=== PATIENT | female | born 1965 | race African-American/Black ===

== ENCOUNTER 2019-07-15 17:28 | Emergency (ER) | payer BC, MEDICAID ==
[~2019-07-15] VITALS: Ht 157.5 cm; Wt 54.4 kg
--- NOTE | 2019-07-15 17:30 | NUR ---
Patient BIBA ALS accompanied by Eug[facility] [address], transferred to bed 2. RN evaluating patient at bedside.
[2019-07-15 17:44] VITALS: BP 148/83
--- NOTE | 2019-07-15 18:17 | NUR ---
54 Y/O F BIBA FOR ANXIETY, POSS ALCOHOL WITHDRAWL. PT STATES MOTHER CALLED AMBULANCE FOR HER BECAUSE HER LEGS ARE WEAK, SHAKING. ARMS ARE SHAKING AND SHE HAS LOWER ABDOMINAL PAIN. PT DENIES ALCOHOL X 2 DAYS. PT STATES SHE IS OFF OF HER MEDICATION FOR BIPOLAR, NO SEROQUEL X 2 WEEKS. SEIZURE PRECAUTIONS IN PLACE, BED LOWERED, SIDE RAIL X [address]. ALLERGIES: AMOXICILLIN, ARYTHROMYCIN ACCUCHECK:134 PMH: BIPOLAR
--- NOTE | 2019-07-15 19:12 | NUR ---
REPORT RECEIVED FROM HIREN GIRON.
--- NOTE | 2019-07-15 19:12 | NUR ---
GAVE REPORT TO HIREN MORILLO FOR CHANGE OF SHIFT.
[2019-07-15] MEDS ORDERED: NACL 0.9% 1,000 ML IV ONE (19:15)
[2019-07-15] MEDS ORDERED: LORazepam 2 MG/ML VIAL IVP ONE (19:15)
--- NOTE | 2019-07-15 19:27 | NUR ---
PULLED 2MG/ 1ML OF ATIVAN; WASTED WITH HIREN DUNCAN. ADMINISTERED 1MG/0.5MG.
--- NOTE | 2019-07-15 19:28 | NUR ---
COLLECTED FLU SWAB AND SENT TO LAB.
[2019-07-15 20:20] LABS: BASOPHILS # (AUTO) 0.1 K/uL (0.00-0.22); EOSINOPHILS % (AUTO) 0.1 % (0.0-4.0); HEMATOCRIT 31.4 % (36-48); HEMOGLOBIN 9.9 g/dL (12.0-16.0); LYMPHOCYTES % (AUTO) 16.1 % (20.5-51.1); MEAN CORPUSCULAR HEMOGLOBIN 27 pg (27-31); MEAN CORPUSCULAR HGB CONC 32 g/dL (33-37); MEAN CORPUSCULAR VOLUME 85.6 fL (80-94); MONOCYTES # (AUTO) 0.9 K/uL (0.8-1.0); MONOCYTES % (AUTO) 15.3 % (1.7-9.3); NEUTROPHILS # (AUTO) 4.1 K/uL (1.8-7.7); NEUTROPHILS % (AUTO) 67.5 % (42.2-75.2); PLATELET COUNT (AUTO) 249 K/uL (140-450); RED BLOOD CELL COUNT(AUTO) 3.66 MIL/uL (4.20-5.40); RED CELL DISTRIBUTION WIDTH 21.3 % (11.6-13.7)
--- NOTE | 2019-07-15 20:22 | NUR ---
PATIENT IS SITTING QUIETLY IN BED. WILL CONTINUE TO MONITOR.
[2019-07-15 21:02] LABS: ASPARTATE AMINOTRANSFERASE 28 U/L (15-37); CARBON DIOXIDE 22.8 mmol/L (21-32); CHLORIDE 105 mmol/L (98-107); CREATININE 0.5 mg/dL (0.6-1.3); GFR ARICAN-AMERICAN 165 mL/min (>90); GLUCOSE 97 mg/dL (74-106); POTASSIUM 3.8 mmol/L (3.5-5.1); SALICYLATE 7.2 mg/dL (2.8-20.0); SODIUM SERUM 139 mmol/L (136-145); TOTAL BILIRUBIN 0.3 mg/dL (0.0-1.0); UREA NITROGEN, BLOOD 8 mg/dL (7-18)
[2019-07-15 21:09] LABS: ACETAMINOPHEN < 0.5 ug/ml (10-30)
--- NOTE | 2019-07-15 21:25 | NUR ---
CALLED AND UPDATED PT.'S FATHER (PJ). PATIENT WILL BE DISCHARGED PER ERMD; PATIENT'S FATHER WILL PROVIDE RIDE HOME.
[2019-07-15] MEDS ORDERED: LORazepam 1 MG TAB PO ONE (21:45)
[2019-07-15 21:52] VITALS: BP 134/84
--- NOTE | 2019-07-15 21:52 | NUR ---
Patient discharged with v/s stable. Written and verbal after care instructions given and explained. Patient verbalized understanding. WHEELCHAIRED TO THE LOBBY . All questions addressed prior to discharge. Advised to follow up with PMD.
== END 2019-07-15 21:52 | disposition home or self-care (01) ==
LOC: MED 17:28
DX: R53.1 Weakness (principal); F10.10 Alcohol abuse, uncomplicated; F17.210 Nicotine dependence, cigarettes, uncomplicated; Y90.0 Blood alcohol level of less than 20 mg/100 ml; Z98.890 Other specified postprocedural states
CPT/HCPCS: 36415; 80053; 82948; 83605; 85025; 87040; 87804; 96374; 99283; G0480; G0482; J2060; J7030

== ENCOUNTER 2022-01-30 18:11 | Emergency (ER) | payer MEDICAID ==
[~2022-01-30] VITALS: Ht 160 cm; Wt 49.9 kg
[2022-01-30 18:18] VITALS: BP 132/80
[2022-01-30 18:53] LABS: BASOPHILS # (AUTO) 0.2 K/uL (0.00-0.22); BASOPHILS % (AUTO) 3.3 % (0.0-2.0); EOSINOPHILS # (AUTO) 0.1 K/uL (0-0.4); HEMATOCRIT 26.4 % (36-48); HEMOGLOBIN 7.9 g/dL (12.0-16.0); LYMPHOCYTES # (AUTO) 2.9 K/uL (2.5-16.5); LYMPHOCYTES % (AUTO) 45.4 % (20.5-51.1); MEAN CORPUSCULAR HEMOGLOBIN 20 pg (27-31); MEAN CORPUSCULAR HGB CONC 30 g/dL (33-37); MEAN CORPUSCULAR VOLUME 68.1 fL (80-94); MONOCYTES # (AUTO) 0.4 K/uL (0.8-1.0); MONOCYTES % (AUTO) 6.4 % (1.7-9.3); NEUTROPHILS # (AUTO) 2.8 K/uL (1.8-7.7); NEUTROPHILS % (AUTO) 43.9 % (42.2-75.2); PLATELET COUNT (AUTO) 545 K/uL (140-450); RED BLOOD CELL COUNT(AUTO) 3.88 MIL/uL (4.20-5.40); RED CELL DISTRIBUTION WIDTH 21.6 % (11.6-13.7); WHITE BLOOD COUNT (AUTO) 6.5 K/uL (4.8-10.8)
[2022-01-30 19:06] LABS: ANION GAP 16.5 (8-16); CARBON DIOXIDE 21.8 mmol/L (21-32); CREATININE 0.5 mg/dL (0.6-1.3); POTASSIUM 3.3 mmol/L (3.5-5.1); TOTAL BILIRUBIN 0.2 mg/dL (0.0-1.0)
[2022-01-31] MEDS ORDERED: LORazepam 2 MG/ML VIAL IM ONE (01:40)
[2022-01-31 05:19] VITALS: BP 123/70
== END 2022-01-31 05:19 | disposition home or self-care (01) ==
LOC: MED 18:11
DX: F10.129 Alcohol abuse with intoxication, unspecified (principal); Y90.9 Presence of alcohol in blood, level not specified; W18.30XA Fall on same level, unspecified, initial encounter; Y93.89 Activity, other specified; Y92.89 Other specified places as the place of occurrence of the external cause; Y99.8 Other external cause status
CPT/HCPCS: 36415; 70450; 72125; 74176; 80053; 85025; 96372; 99285; G0482; J2060